=== PATIENT | female | born 1955 | race Caucasian/White ===

== ENCOUNTER → 2017-03-25 | Outpatient (CLI) | payer OTHER ==
--- NOTE | 2017-03-25 10:42 | XR ---
Lumbosacral spine HISTORY: Lower back pain radiating down right leg 5 views of the lumbosacral spine There is an S-shaped thoracic lumbar scoliosis. No spondylolysis or spondylolisthesis. Lumbar vertebr al bodies show preserved height. Anterolisthesis grade 1 L4-5. Bone mineralization is reduced. There is loss of disc height at the intervertebral levels. Sclerosis present in the posterior elements. Mul tilevel spondylosis is present. IMPRESSION: Scoliosis, facet arthropathy, degenerative disc disease, osteopenia.
== END | disposition home or self-care (01) ==
LOC: RADXRMAIN 10:02
PROVIDERS: ATTEND Family Medicine
DX: M51.36 Other intervertebral disc degeneration, lumbar region (principal); M46.86 Other specified inflammatory spondylopathies, lumbar region; M41.86 Other forms of scoliosis, lumbar region; M85.88 Other specified disorders of bone density and structure, other site
CPT/HCPCS: 72110